=== PATIENT | male | born 1945 | race Caucasian/White ===

== ENCOUNTER → 2016-11-19 | Outpatient (CLI) | payer MEDICARE, OTHER | END | disposition home or self-care (01) | LOC: PCVCCLINIC 12:14 | PROVIDERS: ATTEND Internal Medicine Cardiovascular Disease | DX: I48.0 Paroxysmal atrial fibrillation (principal); I49.5 Sick sinus syndrome; E78.00 Pure hypercholesterolemia, unspecified; I50.9 Heart failure, unspecified; I10 Essential (primary) hypertension; K21.9 Gastro-esophageal reflux disease without esophagitis | CPT/HCPCS: 93005; G0463 ==

== ENCOUNTER → 2017-04-01 | Outpatient (CLI) | payer MEDICARE ==
--- NOTE | 2017-04-01 17:08 | PCVCIMAG ---
APPROVED REPORT Study performed: 04/01/2017 13:43:04 EXAM: Comprehensive 2D, Doppler, and color-flow Echocardiogram Patient Location: Echo lab Status: routine Indications Atrial Fibrillation Pacemaker Hypertension/HDD SICK SINUS SYNDROME,MORBID OBESITY, 2D Dimensions IVSd: 11.15 (7-11mm)LVOT Diam: 20.90 (18-24mm) LVDd: 36.52 mm PWd: 10.24 (7-11mm)Ascending Ao: 29.00 (22-36mm) LVDs: 18.60 (25-40mm) Aortic Root: 27.49 mm LV Single Plane 4CH: 59.52 % LV Single Plane 2CH: 57.81 %Mota's LVEF: 58.67 % Biplane EF: 59.5 % Volumes Left Atrial Volume (Systole) Single Plane 4CH: 57.91 mLSingle Plane 2CH: 72.36 mL LA ESV Index: 30.00 mL/m2 Aortic Valve AoV Peak Jesus.: 1.66 m/s AO Peak Gr.: 10.99 mmHgLVOT Max P.03 mmHg LVOT Max V: 0.71 m/s IRENE Vmax: 1.48 cm2 Mitral Valve E/A Ratio: 1.0 MV Decel. Time: 229.97 ms MV E Max Jesus.: 0.74 m/s MV A Jesus.: 0.71 m/s IVRT: 115.34 ms TDI E/Lateral E': 6.17E/Medial E': 8.22 Medial E' Jesus.: 0.09 m/s Lateral E' Jesus.: 0.12 m/s Pulmonary Valve PV Peak Jesus.: 0.92 m/sPV Peak Gr.: 3.38 mmHg Pulmonary Vein P Vein S: 0.64 m/sP Vein A: 0.32 m/s P Vein D: 0.39 m/sP Vein A Dur.: 101.5 msec P Vein S/D Ratio: 1.64 Tricuspid Valve TR Peak Jesus.: 0.88 m/s TR Peak Gr.: 3.11 mmHg TV Vmax: 0.61 m/sPA Pressure: 10.00 mmHg Left Ventricle The left ventricle is normal size. There is normal LV segmental wall motion. Mild concentric left ventricular hypertrophy. Left ventricular systolic function is normal. The left ventricular ejection fraction is within the normal range. LVEF is 60%. The left ventricular diastolic function is normal. Right Ventricle The right ventricle is normal size. The right ventricular systolic function is normal. Atria The left atrium size is normal. The right atrium size is normal. Aortic Valve The aortic valve is normal in structure. No aortic regurgitation is present. There is no aortic valvular stenosis. Mitral Valve The mitral valve is normal in structure. Trace to mild mitral regurgitation. No evidence of mitral valve stenosis. Tricuspid Valve The tricuspid valve is normal in structure. Trace to mild tricuspid regurgitation. Pulmonic Valve The pulmonary valve is normal in structure. There is no pulmonic valvular regurgitation. Great Vessels The aortic root is normal in size. The ascending aorta is normal in size. IVC is normal in size and collapses with >50% inspiration Pericardium There is no pericardial effusion. There is no pleural effusion. <Conclusion> The left ventricle is normal size. Mild concentric left ventricular hypertrophy. LVEF is 60%. The left ventricular diastolic function is normal. The right ventricle is normal size. The left atrium size is normal. The aortic valve is normal in structure. Trace to mild mitral regurgitation. Trace to mild tricuspid regurgitation. There is no pericardial effusion.
== END | disposition home or self-care (01) ==
LOC: PCVCIMAG 13:20
PROVIDERS: ATTEND Internal Medicine Cardiovascular Disease
DX: I08.1 Rheumatic disorders of both mitral and tricuspid valves (principal); I48.0 Paroxysmal atrial fibrillation; E66.01 Morbid (severe) obesity due to excess calories; I10 Essential (primary) hypertension; E78.5 Hyperlipidemia, unspecified; I49.5 Sick sinus syndrome; K21.9 Gastro-esophageal reflux disease without esophagitis; E78.00 Pure hypercholesterolemia, unspecified; Z95.0 Presence of cardiac pacemaker; Z90.49 Acquired absence of other specified parts of digestive tract; Z87.891 Personal history of nicotine dependence; Z79.01 Long term (current) use of anticoagulants; Z79.82 Long term (current) use of aspirin
CPT/HCPCS: 80061; 93005; 93306; G0463

== ENCOUNTER → 2018-04-02 | Outpatient (CLI) | payer MEDICARE | END | disposition home or self-care (01) | LOC: PCVCCLINIC 11:19 | DX: I48.0 Paroxysmal atrial fibrillation (principal); I49.5 Sick sinus syndrome; I10 Essential (primary) hypertension; Z95.0 Presence of cardiac pacemaker; Z79.899 Other long term (current) drug therapy | CPT/HCPCS: 80061; 93005; G0463 ==

== ENCOUNTER → 2018-04-20 | Outpatient (CLI) | payer MEDICARE ==
[~2018-04-20] MED LIST: BENZOCAINE ONE 20% MUCOSAL SPRAY.; IV NORMAL SALINE 500ML BAG 500 ML; MIDAZOLAM HCL/PF 2 MG/2 ML VIAL.; fentaNYL PF VIAL 100 MCG/2 ML VIAL
== END | disposition home or self-care (01) ==
LOC: PCVCIMAG 09:59
DX: I48.91 Unspecified atrial fibrillation (principal); I34.0 Nonrheumatic mitral (valve) insufficiency
CPT/HCPCS: 93312; 93325; J2250; J3010; J7040

== ENCOUNTER → 2019-01-08 | Outpatient (CLI) | payer MEDICARE | END | disposition home or self-care (01) | LOC: PCVCCLINIC 15:31 | PROVIDERS: ATTEND Internal Medicine Cardiovascular Disease | DX: I48.0 Paroxysmal atrial fibrillation (principal); E78.5 Hyperlipidemia, unspecified; I10 Essential (primary) hypertension; I49.5 Sick sinus syndrome; K21.9 Gastro-esophageal reflux disease without esophagitis; Z95.0 Presence of cardiac pacemaker | CPT/HCPCS: 36415; 80061; 93280; G0463 ==